=== PATIENT | female | born 1975 | race Caucasian/White ===

== ENCOUNTER 2016-10-22 08:26 | Emergency (ER) | payer MEDICAID ==
[2016-10-22 08:42] VITALS: BP 113/52
--- NOTE | 2016-10-22 09:45 | EDM.PDOC ---
[id number] Complaint: STEPPED ON A NAIL 10/19/16 Time Seen by Provider: 10/22/16 08:50 Source of Information: Reports: Patient, Family History Limitations: Reports: No Limitations - History of Present Illness INITIAL COMMENTS - FREE TEXT/NARRATIVE: 40-year-old female stepped on a nail 4 days ago, did go in to the clinic the following day and get a tetanus booster but this morning when she woke up she noticed her knee was sore, slightly swollen and was worried that she may have gotten infection from the nail puncture. She has had flareups of the knee in the past but not quite this painful. She has no fever, no redness, the nail puncture is healed but she has a lot of lateral joint line tenderness and wanted her knee looked at. Onset: Gradual (Over the past 12 hours) Location: Reports: Lower Extremity, Left Worsens with: Reports: Immobilization (After resting it stiffer, actually improves after she's been active), Other (Weightbearing is painful initially) Associated Symptoms: Denies: Fever/Chills - Related Data Allergies Allergy/AdvReac Type Severity Reaction Status Date / Time No Known Allergies Allergy Verified 10/22/16 08:42 Home Meds: Home Meds FLUoxetine [PROzac] 40 mg PO DAILY 10/06/14 [History] Past Medical History - Past Surgical History Female Surgical History: Reports: D&C, Tubal Ligation Other Musculoskeletal Surgeries/Procedures:: Bunionectomy Social & Family History - Tobacco Use Smoking Status *Q: Never Smoker Second Hand Smoke Exposure: No - Recreational Drug Use Recreational Drug Use: No Review of Systems - Review of Systems Review Of Systems: See Below Constitutional: Denies: Fever Eyes: Reports: No Symptoms Respiratory: Reports: No Symptoms Genitourinary: Reports: No Symptoms Skin: Reports: Other (Small healing puncture wound on the left foot) Psychiatric: Reports: No Symptoms ED EXAM, GENERAL - Physical Exam Exam: See Below Exam Limited By: No Limitations General Appearance: Alert, No Apparent Distress Respiratory/Chest: No Respiratory Distress Extremities: Other (Exam is otherwise limited to the lower extremities. She has a very small amount of swelling over the anterior aspect of the left knee with tenderness to palpation over the medial and lateral joint line. The ligaments however are stable with varus and valgus stress. She also has a small amount of posterior popliteal pain.) Course - Vital Signs Last Recorded V/S: Last Vital Signs Temp 96.1 F 10/22/16 08:49 Pulse 68 10/22/16 08:49 Resp 16 10/22/16 08:49 BP 113/52 L 10/22/16 08:49 Pulse Ox 95 10/22/16 08:49 - Orders/Labs/Meds Orders: Active Orders 24 hr Category Date Time Status Knee 3V Lt [CR] Stat Exams 10/22/16 09:12 Taken - Re-Assessments/Exams Free Text/Narrative Re-Assessment/Exam: 10/22/16 09:43 An knee x-ray is normal. A four-inch Pramod wrap was applied to the knee, she was asked to increase activity as tolerated and recheck with Dr. Chauhan later in the week if she is not improving satisfactorily. I reassured her that this is very unlikely related to her nail puncture. She will return immediately if she develops a fever, redness of the knee or warmth Departure - Departure Time of Disposition: 09:59 Disposition: Home, Self-Care 01 Condition: Good Clinical Impression: Strain of knee Qualifiers: Encounter type: initial encounter Laterality: left Qualified Code(s): S86.912A - Strain of unspecified muscle(s) and tendon(s) at lower leg level, left leg, initial encounter - Discharge Information Instructions: Knee Sprain, [id number] Referrals: Jessica Ritchie PA [Primary Care Provider] - Forms: ED Department Discharge Care Plan Goals: Wrap knee for support and increase activity as tolerated. Recheck if fever develops, increased redness or pain of the knee. If not improving satisfactorily recheck with Victor Manuel Chauhan in 4-5 days, he does have clinic on . If improving just increase activity as tolerated. - My Orders Last 24 Hours: My Active Orders 10/22/16 09:12 Knee 3V Lt [CR] Stat - Assessment/Plan Last 24 Hours: My Active Orders 10/22/16 09:12 Knee 3V Lt [CR] Stat
--- NOTE | 2016-10-23 09:44 | CR ---
No evidence for fracture.
== END 2016-10-22 10:00 | disposition home or self-care (01) ==
LOC: JP.ED 08:26
DX: S86.912A Strain of unspecified muscle(s) and tendon(s) at lower leg level, left leg, initial encounter (principal); W45.0XXA Nail entering through skin, initial encounter
CPT/HCPCS: 73562-26-LT; 73562-LT; 99284

== ENCOUNTER 2017-01-18 17:16 | Emergency (ER) | payer MEDICAID ==
[2017-01-18 17:30] VITALS: BP 105/67
--- NOTE | 2017-01-18 18:42 | EDM.PDOC ---
ED HPI GENERAL MEDICAL PROBLEM - General Chief Complaint: Lower Extremity Injury/Pain Stated Complaint: WANTS HER KNEE TAPPED Time Seen by Provider: 01/18/17 18:19 Source of Information: Reports: Patient History Limitations: Reports: No Limitations - History of Present Illness INITIAL COMMENTS - FREE TEXT/NARRATIVE: Knee swelling for the past several days. No injury. Was seen in the clinic and referred to the ER for aspiration. No hx of prior knee issues. Has medial jt line pain. No hx of gout. 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 DIRECTOR: Reports: Other (see below) (Knee sleeve.) knee; left Pain Score (Numeric/FACES): 6 - Related Data Allergies Allergy/AdvReac Type Severity Reaction Status Date / Time No Known Allergies Allergy Verified 01/18/17 17:41 Home Meds: Home Meds FLUoxetine [PROzac] 40 mg PO DAILY 10/06/14 [History] Naproxen 2 tab PO BID PRN 12/14/16 [History] Past Medical History Musculoskeletal History: Reports: Other (See Below) Other Musculoskeletal History: left shoulder pain Psychiatric History: Reports: Depression - Past Surgical History Female Surgical History: Reports: D&C, Tubal Ligation Other Musculoskeletal Surgeries/Procedures:: Bunionectomy Social & Family History - Tobacco Use Smoking Status *Q: Never Smoker Second Hand Smoke Exposure: No - Recreational Drug Use Recreational Drug Use: No Review of Systems - Review of Systems Review Of Systems: See Below Constitutional: Reports: No Symptoms Musculoskeletal: Reports: Joint Swelling (L knee) Skin: Reports: No Symptoms Neurological: Reports: No Symptoms ED EXAM, GENERAL - Physical Exam Exam: See Below Exam Limited By: No Limitations General Appearance: Alert, WD/WN, No Apparent Distress Extremities: Joint Swelling (L knee slightly warm with a large effusion.), Increased Warmth (slight increase only). No: Redness Neurological: Alert, Oriented, CN II-XII Intact, Normal Cognition, Normal Reflexes, No Motor/Sensory Deficits Psychiatric: Normal Affect, Normal Mood Skin Exam: Warm, Dry, Intact, Normal Color, No Rash Lymphatic: No Adenopathy Course - Vital Signs Text/Narrative:: Aspirated 30 ml of cloudy, yellow fluid from the L knee. BONIFACIO and immobilizer applied. Discussed with orthopedics, Dr. Chauhan @ Last Recorded V/S: Last Vital Signs Temp 36.4 C 01/18/17 19:56 Pulse 87 01/18/17 17:28 Resp 16 01/18/17 17:28 BP 105/67 01/18/17 17:28 Pulse Ox 99 01/18/17 17:28 - Orders/Labs/Meds Orders: Active Orders 24 hr Category Date Time Status CELL COUNT,BODY FLUID [BF] Stat Lab 01/18/17 18:58 Received CRYSTALS,FLUID [REF] Stat Lab 01/18/17 18:58 Received CULTURE BODY FLUID + SMEAR [RM] Stat Lab 01/18/17 18:58 Results LYME,BY PCR [REF] Routine Lab 01/18/17 20:12 Ordered ceFAZolin [Ancef] 2 gm Med 01/18/17 20:13 Ordered Premix Bag 1 bag IV ONETIME Medication Orders Cefazolin Sodium/Dextrose 2 gm (/ Premix) 50 mls @ 100 mls/hr IV ONETIME ONE Stop: 01/18/17 20:42 Labs: Laboratory Tests 01/18/17 Range/Units 19:57 WBC 11.9 H (4.5-11.0) K/uL RBC 3.83 (3.30-5.50) M/uL Hgb 11.1 L (12.0-15.0) g/dL Hct 34.0 L (36.0-48.0) % MCV 89 (80-98) fL MCH 29 (27-31) pg MCHC 33 (32-36) % Plt Count 336 (150-400) K/uL Meds: Medications Generic Name Dose Route Start Last Admin Trade Name Freq PRN Reason Stop Dose Admin Cefazolin Sodium/Dextrose 2 gm 50 mls @ 100 mls/hr 01/18/17 20:13 / Premix IV 01/18/17 20:42 ONETIME ONE Discontinued Medications Generic Name Dose Route Start Last Admin Trade Name Freq PRN Reason Stop Dose Admin Lidocaine HCl 5 ml 01/18/17 18:16 01/18/17 18:55 Xylocaine-Mpf 1% INJECT 01/18/17 18:17 5 ml ONETIME ONE Administration Departure - Departure Time of Disposition: 20:50 Disposition: Home, Self-Care 01 Condition: Fair Clinical Impression: Knee effusion, left - Discharge Information Referrals: Jessica Ritchie PA [Primary Care Provider] - Forms: ED Department Discharge - My Orders Last 24 Hours: My Active Orders 01/18/17 18:58 CELL COUNT,BODY FLUID [BF] Stat CRYSTALS,FLUID [REF] Stat CULTURE BODY FLUID + SMEAR [RM] Stat 01/18/17 20:12 LYME,BY PCR [REF] Routine 01/18/17 20:13 ceFAZolin [Ancef] 2 gm Premix Bag 1 bag IV ONETIME - Assessment/Plan Last 24 Hours: My Active Orders 01/18/17 18:58 CELL COUNT,BODY FLUID [BF] Stat CRYSTALS,FLUID [REF] Stat CULTURE BODY FLUID + SMEAR [RM] Stat 01/18/17 20:12 LYME,BY PCR [REF] Routine 01/18/17 20:13 ceFAZolin [Ancef] 2 gm Premix Bag 1 bag IV ONETIME
[2017-01-18] MEDS ORDERED: ceFAZolin 2 GM in Premix Bag 1 BAG IV ONE (20:13)
== END 2017-01-18 21:20 | disposition home or self-care (01) ==
LOC: JP.ED 17:16
DX: M25.462 Effusion, left knee (principal); F32.9 Major depressive disorder, single episode, unspecified
CPT/HCPCS: 20610; 36415; 85027; 87070; 87205; 87476; 89050; 89060; 96374; 99284; J0690

== ENCOUNTER 2020-05-15 10:29 | Emergency (ER) | payer MEDICAID ==
--- NOTE | 2020-05-15 10:43 | EDM.PDOCBH ---
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 History from patient. she is a good historian. history also from male partner at bedside. Patient notes to me difficulty sleeping, thoughts of worthlessness, crying episodes, depression and "suicide attempt" yesterday when she took 8x0.5 mg tablets of her Ativan with hope that her "heart would stop". Patient notes that "if she had a gun she would use it." She "wants to " upon ER arrival. She reports lack of interest in activities, food, nutrition. Her male partner notes that he "made her eat today. Patient on arrival has a supportive male partner at the bedside was concerned about her wellbeing and her ongoing suicidal thoughts, plan and recent attempt. Patient denies any runny nose, sore throat, cough, change in taste or smell. Denies history of thyroid problems. Denies any alcohol or drug use or abuse at this time. She previously was working as "[employer]". There are recent reported social stressors in her life. She feels physically safe and denies being threatened or abused. she still has ativan at home. Patient denies any Tylenol ingestions or any other medication ingestions other than the Ativan yesterday. She is on her menses at this time and denies . no covid symptoms. - Related Data Allergies Allergy/AdvReac Type Severity Reaction Status Date / Time No Known Allergies Allergy Verified 05/15/20 10:42 Home Meds: Home Meds FLUoxetine [PROzac] 40 mg PO DAILY 10/06/14 [History] Naproxen 2 tab PO BID PRN 12/14/16 [History] ARIPiprazole [Abilify] 5 mg PO DAILY 05/15/20 [History] LORazepam [Ativan] 0.5 mg PO Q6H PRN 05/15/20 [History] Past Medical History Musculoskeletal History: Reports: Other (See Below) Other Musculoskeletal History: left shoulder pain. left knee cyr Psychiatric History: Reports: Depression - Past Surgical History Female Surgical History: Reports: D&C, Tubal Ligation Other Musculoskeletal Surgeries/Procedures:: Bunionectomy Social & Family History - Caffeine Use Caffeine Use: Reports: Coffee, Soda ED ROS GENERAL - Review of Systems Review Of Systems: See Below HEENT: Reports: No Symptoms Respiratory: Reports: No Symptoms Cardiovascular: Reports: No Symptoms Endocrine: Reports: No Symptoms GI/Abdominal: Reports: No Symptoms : Reports: Other (on menses now. ) Musculoskeletal: Reports: No Symptoms Skin: Reports: No Symptoms Neurological: Reports: No Symptoms Psychiatric: Reports: Anxiety, Suicidal Ideation, Other (suicide plan and attempt 1 day ago. ) Hematologic/Lymphatic: Reports: No Symptoms Immunologic: Reports: No Symptoms ED EXAM, BEHAVIORAL HEALTH - Physical Exam Exam: See Below Exam Limited By: No Limitations General Appearance: Alert, Anxious Eye Exam: Bilateral Eye: EOMI Ears: Normal External Exam. No: Hearing Loss Nose: Normal Inspection Throat/Mouth: Normal Lips, Normal Gums, No Airway Compromise Head: Atraumatic Neck: Normal Inspection, Full Range of Motion Respiratory/Chest: No Respiratory Distress, Lungs Clear, Normal Breath Sounds Cardiovascular: Normal Peripheral Pulses, Regular Rate, Rhythm, No Edema, No Murmur GI/Abdominal: Normal Bowel Sounds, Soft, Non-Tender, No Distention Back Exam: Normal Inspection, Full Range of Motion Extremities: Normal Inspection, Normal Range of Motion, Non-Tender, Normal Capillary Refill Neurological: Alert, Normal Cognition, Normal Gait, No Motor/Sensory Deficits, Oriented x 3. No: Ataxia, Slow Response to Commands Psychiatric: Flat Affect, Tearful, Poor Eye Contact, Suicidal Thoughts. No: Flight of Ideas, Homicidal Thoughts, Auditory Hallucinations, Visual Hallucinations, Pressured Speech, Paranoid Thoughts, Threatening Behavior Skin Exam: Warm, Dry, Intact, Normal color, No rash COURSE, BEHAVIORAL HEALTH COMP - Course Vital Signs: Last Vital Signs Temp 36.1 C 05/15/20 10:51 Pulse 96 05/15/20 10:51 Resp 17 05/15/20 10:51 BP 109/69 05/15/20 10:51 Pulse Ox 96 05/15/20 10:51 Orders, Labs, Meds: Laboratory Tests 05/15/20 05/15/20 05/15/20 Range/Units 11:26 11:26 11:26 WBC 9.6 (4.5-11.0) K/uL RBC 4.45 (3.30-5.50) M/uL Hgb 13.3 D (12.0-15.0) g/dL Hct 41.1 (36.0-48.0) % MCV 92 (80-98) fL MCH 30 (27-31) pg MCHC 32 (32-36) % Plt Count 343 (150-400) K/uL Neut % (Auto) 70 H (36-66) % Lymph % (Auto) 21 L (24-44) % [place] % (Auto) 9 H (2-6) % Eos % (Auto) 1 L (2-4) % Baso % (Auto) 0 (0-1) % Sodium 141 (140-148) mmol/L Potassium 3.9 (3.6-5.2) mmol/L Chloride 106 (100-108) mmol/L Carbon Dioxide 27 (21-32) mmol/L Anion Gap 7.6 (5.0-14.0) mmol/L BUN 20 H D (7-18) mg/dL Creatinine 0.9 (0.6-1.0) mg/dL Est Cr Clr Drug Dosing 70.28 mL/min Estimated GFR (MDRD) > 60 (>60) Glucose 113 H (74-106) mg/dL Calcium 9.2 (8.5-10.1) mg/dL Total Bilirubin 0.4 (0.2-1.0) mg/dL AST 13 L D (15-37) U/L ALT 16 (12-78) U/L Alkaline Phosphatase 60 (46-116) U/L Total Protein 7.0 (6.4-8.2) g/dL Albumin 3.8 (3.4-5.0) g/dL Globulin 3.2 (2.3-3.5) g/dL Albumin/Globulin Ratio 1.2 (1.2-2.2) TSH, Ultra Sensitive 0.658 (0.358-3.740) uIU/mL HCG, Qual Negative Salicylates (2.0-20.0) mg/dL Urine Opiates Screen (NEGATIVE) Ur Oxycodone Screen (NEGATIVE) Urine Methadone Screen (NEGATIVE) Ur Propoxyphene Screen (NEGATIVE) Acetaminophen (10.0-30.0) ug/mL Ur Barbiturates Screen (NEGATIVE) Ur Tricyclics Screen (NEGATIVE) Ur Phencyclidine Scrn (NEGATIVE) Ur Amphetamine Screen (NEGATIVE) U Methamphetamines Scrn (NEGATIVE) Urine MDMA Screen (NEGATIVE) U Benzodiazepines Scrn (NEGATIVE) U Cocaine Metab Screen (NEGATIVE) U Marijuana (THC) Screen (NEGATIVE) Ethyl Alcohol mg/dL SARS CoV-2 RNA Rapid JAX 05/15/20 05/15/20 05/15/20 Range/Units 11:26 11:26 11:26 WBC (4.5-11.0) K/uL RBC (3.30-5.50) M/uL Hgb (12.0-15.0) g/dL Hct (36.0-48.0) % MCV (80-98) fL MCH (27-31) pg MCHC (32-36) % Plt Count (150-400) K/uL Neut % (Auto) (36-66) % Lymph % (Auto) (24-44) % [place] % (Auto) (2-6) % Eos % (Auto) (2-4) % Baso % (Auto) (0-1) % Sodium (140-148) mmol/L Potassium (3.6-5.2) mmol/L Chloride (100-108) mmol/L Carbon Dioxide (21-32) mmol/L Anion Gap (5.0-14.0) mmol/L BUN (7-18) mg/dL Creatinine (0.6-1.0) mg/dL Est Cr Clr Drug Dosing mL/min Estimated GFR (MDRD) (>60) Glucose (74-106) mg/dL Calcium (8.5-10.1) mg/dL Total Bilirubin (0.2-1.0) mg/dL AST (15-37) U/L ALT (12-78) U/L Alkaline Phosphatase (46-116) U/L Total Protein (6.4-8.2) g/dL Albumin (3.4-5.0) g/dL Globulin (2.3-3.5) g/dL Albumin/Globulin Ratio (1.2-2.2) TSH, Ultra Sensitive (0.358-3.740) uIU/mL HCG, Qual Salicylates 1.4 L (2.0-20.0) mg/dL Urine Opiates Screen (NEGATIVE) Ur Oxycodone Screen (NEGATIVE) Urine Methadone Screen (NEGATIVE) Ur Propoxyphene Screen (NEGATIVE) Acetaminophen 0.0 L (10.0-30.0) ug/mL Ur Barbiturates Screen (NEGATIVE) Ur Tricyclics Screen (NEGATIVE) Ur Phencyclidine Scrn (NEGATIVE) Ur Amphetamine Screen (NEGATIVE) U Methamphetamines Scrn (NEGATIVE) Urine MDMA Screen (NEGATIVE) U Benzodiazepines Scrn (NEGATIVE) U Cocaine Metab Screen (NEGATIVE) U Marijuana (THC) Screen (NEGATIVE) Ethyl Alcohol < 3 mg/dL SARS CoV-2 RNA Rapid JAX 05/15/20 05/15/20 Range/Units 11:29 11:34 WBC (4.5-11.0) K/uL RBC (3.30-5.50) M/uL Hgb (12.0-15.0) g/dL Hct (36.0-48.0) % MCV (80-98) fL MCH (27-31) pg MCHC (32-36) % Plt Count (150-400) K/uL Neut % (Auto) (36-66) % Lymph % (Auto) (24-44) % [place] % (Auto) (2-6) % Eos % (Auto) (2-4) % Baso % (Auto) (0-1) % Sodium (140-148) mmol/L Potassium (3.6-5.2) mmol/L Chloride (100-108) mmol/L Carbon Dioxide (21-32) mmol/L Anion Gap (5.0-14.0) mmol/L BUN (7-18) mg/dL Creatinine (0.6-1.0) mg/dL Est Cr Clr Drug Dosing mL/min Estimated GFR (MDRD) (>60) Glucose (74-106) mg/dL Calcium (8.5-10.1) mg/dL Total Bilirubin (0.2-1.0) mg/dL AST (15-37) U/L ALT (12-78) U/L Alkaline Phosphatase (46-116) U/L Total Protein (6.4-8.2) g/dL Albumin (3.4-5.0) g/dL Globulin (2.3-3.5) g/dL Albumin/Globulin Ratio (1.2-2.2) TSH, Ultra Sensitive (0.358-3.740) uIU/mL HCG, Qual Salicylates (2.0-20.0) mg/dL Urine Opiates Screen Negative (NEGATIVE) Ur Oxycodone Screen Negative (NEGATIVE) Urine Methadone Screen Negative (NEGATIVE) Ur Propoxyphene Screen Negative (NEGATIVE) Acetaminophen (10.0-30.0) ug/mL Ur Barbiturates Screen Negative (NEGATIVE) Ur Tricyclics Screen Negative (NEGATIVE) Ur Phencyclidine Scrn Negative (NEGATIVE) Ur Amphetamine Screen Negative (NEGATIVE) U Methamphetamines Scrn Negative (NEGATIVE) Urine MDMA Screen Negative (NEGATIVE) U Benzodiazepines Scrn Presumptive positive H (NEGATIVE) U Cocaine Metab Screen Negative (NEGATIVE) U Marijuana (THC) Screen Negative (NEGATIVE) Ethyl Alcohol mg/dL SARS CoV-2 RNA Rapid JAX Negative Medications Discontinued Medications Generic Name Dose Route Start Last Admin Trade Name Freq PRN Reason Stop Dose Admin Lorazepam 1 mg 05/15/20 11:18 05/15/20 11:22 Ativan PO 05/15/20 11:19 1 mg NOW STA Administration Re-Assessment/Re-Exam: Patient underwent history and physical examination and reassessments. Patient is awake, alert, coherent and has not had any untoward effects from her intentional suicidal benzodiazepine ingestion yesterday. Patient denies any coingestions. She is clinically sober and lucid. Based on patient's goal direction "to ", recent attempt and ongoing suicidal ideation with plan , I do feel she would benefit from inpatient psychiatric admission. I discussed this with the patient who voiced understanding. I recommend a 72-hour hold. Patient is currently being watched with suicide precautions and safety measures in place. Her personal belongings have been categorized and will be placed in safety location. Baseline screening laboratory studies are being obtained. Patient has no Covid symptoms. A rapid Covid test is sent. Patient will require inpatient psychiatric admission not available this institution. Closest behavioral health facility with capacity will be contacted. 1215: patient on 72 hour hold. she is now resting on cart, no longer anxious. await final screening labs. will need placement for behavioral health treatment. 1224: Screen laboratories have been reviewed. Patient is medically stable for transfer for inpatient mental health needs. Patient is Covid negative. Remaining laboratory studies are reassuring. No evidence of thyroid abnormalities, metabolic derangements, anemia or any clinical signs of acute drug ingestion, withdrawal or intoxication. Patient is appropriate for inpatient mental health on a 72-hour hold. She will be offered comfort items and appropriate ED care until a bed can be located. Patient is medically stable for transfer or admission for mental health needs to [facility]. patient is cooperative here and understands need for inpatient treatment. she has ongoing intent to harm herself. she has been very polite with me. 1300: covid test negative. awaiting update on available behavioral health beds available for transfer on 72 hour hold. Medically stable for transfer. Boarding in ED until transfer can be arranged to closest facility with capacity. 1435: patient updated with lab results, covid results. she is resting comfortable and voiced understanding of plan to transfer to closest facility with capacity for ongoing mental health treatment. She is polite and understands. 1504: [facility] accepts via [facility] transport. on 72 hour hold EMTALA completed and transfer forms. patient cooperative. stable for transfer. Departure - Departure Time of Disposition: 15:33 ([place], [place], [facility] with [facility]. EMTRENE completed. Dr. Sam accepted. ) Disposition: DC/Tfer to Psych Hosp/Unit 65 Condition: Fair Clinical Impression: Planning to commit suicide Suicide attempt by drug ingestion Qualifiers: Encounter type: initial encounter Qualified Code(s): T50.902A - Poisoning by unspecified drugs, medicaments and biological substances, intentional self-harm, initial encounter - Discharge Information *PRESCRIPTION DRUG MONITORING PROGRAM REVIEWED*: No *COPY OF PRESCRIPTION DRUG MONITORING REPORT IN PATIENT JB: No Referrals: PCP,None [Primary Care Provider] - Forms: Interfacility Transfer EMTALA Sepsis Event Note (ED) - Focused Exam Vital Signs: Vital Signs Temp Pulse Resp BP Pulse Ox 05/15/20 10:51 36.1 C 96 17 109/69 96 05/15/20 10:47 36.1 C 96 17 109/69 96
[2020-05-15] MEDS ORDERED: LORazepam 1 MG Tab PO STA (11:18)
[2020-05-15] MEDS ORDERED: LORazepam 1 MG Tab PO ONE (16:33)
[2020-05-15 17:15] VITALS: BP 106/67; PULSE 75
== END 2020-05-15 17:23 ==
LOC: JP.ED 10:29
DX: T42.4X2A Poisoning by benzodiazepines, intentional self-harm, initial encounter (principal); Z20.822 Contact with and (suspected) exposure to COVID-19; Z79.899 Other long term (current) drug therapy
CPT/HCPCS: 36415; 80053; 80143; 80179; 80305; 80307; 84443; 84703; 85025; 87635; 99285; A9270; U0002

== ENCOUNTER 2020-05-31 13:01 | Inpatient (IN) | payer MEDICAID ==
--- NOTE | 2020-05-31 13:23 | EDM.PDOC ---
ED HPI GENERAL MEDICAL PROBLEM - General Chief Complaint: Behavioral/Psych Stated Complaint: POSSIBLE OVERDOSE VIA [facility] Time Seen by Provider: 05/31/20 13:21 Source of Information: Reports: Patient History Limitations: Reports: No Limitations - History of Present Illness INITIAL COMMENTS - FREE TEXT/NARRATIVE: Pt took 16-18 pills. She has given 2 storyies. To the ambulance she said it was ativan but now she does not seem to be sure. She is very lethargic. She states her meds are locked up. It sounds like there is conflict in the household. Pt does have a long history of addiction Onset: Gradual, Other (pt took them last nite. ) Duration: Hour(s): Location: Reports: Generalized Associated Symptoms: Reports: No Other Symptoms - Related Data Allergies Allergy/AdvReac Type Severity Reaction Status Date / Time No Known Allergies Allergy Verified 05/31/20 13:11 Home Meds: Home Meds FLUoxetine [PROzac] 40 mg PO DAILY 10/06/14 [History] ARIPiprazole [Abilify] 5 mg PO DAILY 05/15/20 [History] LORazepam [Ativan] 0.5 mg PO Q6H PRN 05/15/20 [History] Lisdexamfetamine [Vyvanse] 30 mg PO DAILY 05/31/20 [History] hydrOXYzine pamoate [Hydroxyzine Pamoate] 75 mg PO TID 05/31/20 [History] traZODone HCl [Trazodone HCl] 100 mg PO BEDTIME 05/31/20 [History] Past Medical History Musculoskeletal History: Reports: Other (See Below) Other Musculoskeletal History: left shoulder pain. left knee cyr Psychiatric History: Reports: Depression - Past Surgical History Head Surgeries/Procedures: Reports: None Female Surgical History: Reports: D&C, Tubal Ligation Musculoskeletal Surgical History: Reports: Other (See Below) Other Musculoskeletal Surgeries/Procedures:: Bunionectomy Social & Family History - Caffeine Use Caffeine Use: Reports: Coffee, Soda ED ROS GENERAL - Review of Systems Review Of Systems: See Below Constitutional: Reports: Other (lethargic) HEENT: Reports: No Symptoms Respiratory: Reports: No Symptoms, Other (pt is in control of hwer secretions) Cardiovascular: Reports: No Symptoms Endocrine: Reports: No Symptoms GI/Abdominal: Reports: No Symptoms : Reports: No Symptoms Musculoskeletal: Reports: No Symptoms Skin: Reports: No Symptoms - Physical Exam Exam: See Below Text/Narrative:: pt arrived with a history of taking about 18 lorezepam last nite. She states these are normally locked up. Exam Limited By: No Limitations General Appearance: Alert, Obtunded, Other (pupils equal and reactive. ) Ears: Normal TMs Nose: Normal Inspection Throat/Mouth: Normal Inspection Head Exam: Atraumatic Neck: Normal Inspection Respiratory/Chest: No Respiratory Distress Cardiovascular: Regular Rate, Rhythm GI/Abdominal: Soft, Non-Tender (Female) Exam: Deferred Rectal (Female) Exam: Deferred Neuro Exam (Abbreviated): Alert, Other ( very lethargic) Back Exam: Normal Inspection Extremities: Normal Inspection Psychiatric: Other (pt is very lethargic. She admits to being much more depressed that is why she took the meds. ) Course - Vital Signs Last Recorded V/S: Last Vital Signs Temp 36.8 C 05/31/20 13:11 Pulse 82 05/31/20 13:11 Resp 20 05/31/20 13:11 BP 108/57 L 05/31/20 13:11 Pulse Ox 100 05/31/20 13:11 - Orders/Labs/Meds Orders: Active Orders 24 hr Category Date Time Status [place] Catheter Insertion [Insert Urinary Catheter] [OM. Care 05/31/20 13:30 Ordered PC] Q24H Urinary Catheter Assessment [RC] ASDIRECTED Care 05/31/20 13:25 Active UA W/MICROSCOPIC [URIN] Urgent Lab 05/31/20 14:36 Ordered Sodium Chloride 0.9% [Normal Saline] 1,000 ml Med 05/31/20 13:30 Active IV ASDIRECTED Sodium Chloride 0.9% [Normal Saline] 1,000 ml Med 05/31/20 13:30 Active IV ASDIRECTED Medication Orders Sodium Chloride (Normal Saline) 1,000 mls @ 999 mls/hr IV ASDIRECTED [facility] Last Admin: 05/31/20 13:23 Dose: 999 mls/hr Documented by: PATRICIA Sodium Chloride (Normal Saline) 1,000 mls @ 999 mls/hr IV ASDIRECTED [facility] Labs: Laboratory Tests 05/31/20 05/31/20 05/31/20 Range/Units 13:19 13:30 13:30 WBC 8.5 (4.5-11.0) K/uL RBC 4.13 (3.30-5.50) M/uL Hgb 12.3 (12.0-15.0) g/dL Hct 38.1 (36.0-48.0) % MCV 92 (80-98) fL MCH 30 (27-31) pg MCHC 32 (32-36) % Plt Count 326 (150-400) K/uL Neut % (Auto) 57 (36-66) % Lymph % (Auto) 32 (24-44) % [place] % (Auto) 10 H (2-6) % Eos % (Auto) 1 L (2-4) % Baso % (Auto) 0 (0-1) % Sodium 142 (140-148) mmol/L Potassium 4.1 (3.6-5.2) mmol/L Chloride 107 (100-108) mmol/L Carbon Dioxide 25 (21-32) mmol/L Anion Gap 10.0 (5.0-14.0) mmol/L BUN 18 (7-18) mg/dL Creatinine 0.9 (0.6-1.0) mg/dL Est Cr Clr Drug Dosing 67.11 mL/min Estimated GFR (MDRD) > 60 (>60) Glucose 87 (74-106) mg/dL Calcium 8.8 (8.5-10.1) mg/dL Total Bilirubin 0.5 (0.2-1.0) mg/dL AST 12 L (15-37) U/L ALT 17 (12-78) U/L Alkaline Phosphatase 53 (46-116) U/L Total Protein 6.5 (6.4-8.2) g/dL Albumin 3.7 (3.4-5.0) g/dL Globulin 2.8 (2.3-3.5) g/dL Albumin/Globulin Ratio 1.3 (1.2-2.2) Urine Opiates Screen (NEGATIVE) Ur Oxycodone Screen (NEGATIVE) Urine Methadone Screen (NEGATIVE) Ur Propoxyphene Screen (NEGATIVE) Ur Barbiturates Screen (NEGATIVE) Ur Tricyclics Screen (NEGATIVE) Ur Phencyclidine Scrn (NEGATIVE) Ur Amphetamine Screen (NEGATIVE) U Methamphetamines Scrn (NEGATIVE) Urine MDMA Screen (NEGATIVE) U Benzodiazepines Scrn (NEGATIVE) U Cocaine Metab Screen (NEGATIVE) U Marijuana (THC) Screen (NEGATIVE) Ethyl Alcohol < 3 mg/dL 05/31/20 Range/Units 14:36 WBC (4.5-11.0) K/uL RBC (3.30-5.50) M/uL Hgb (12.0-15.0) g/dL Hct (36.0-48.0) % MCV (80-98) fL MCH (27-31) pg MCHC (32-36) % Plt Count (150-400) K/uL Neut % (Auto) (36-66) % Lymph % (Auto) (24-44) % [place] % (Auto) (2-6) % Eos % (Auto) (2-4) % Baso % (Auto) (0-1) % Sodium (140-148) mmol/L Potassium (3.6-5.2) mmol/L Chloride (100-108) mmol/L Carbon Dioxide (21-32) mmol/L Anion Gap (5.0-14.0) mmol/L BUN (7-18) mg/dL Creatinine (0.6-1.0) mg/dL Est Cr Clr Drug Dosing mL/min Estimated GFR (MDRD) (>60) Glucose (74-106) mg/dL Calcium (8.5-10.1) mg/dL Total Bilirubin (0.2-1.0) mg/dL AST (15-37) U/L ALT (12-78) U/L Alkaline Phosphatase (46-116) U/L Total Protein (6.4-8.2) g/dL Albumin (3.4-5.0) g/dL Globulin (2.3-3.5) g/dL Albumin/Globulin Ratio (1.2-2.2) Urine Opiates Screen Negative (NEGATIVE) Ur Oxycodone Screen Negative (NEGATIVE) Urine Methadone Screen Negative (NEGATIVE) Ur Propoxyphene Screen Negative (NEGATIVE) Ur Barbiturates Screen Negative (NEGATIVE) Ur Tricyclics Screen Negative (NEGATIVE) Ur Phencyclidine Scrn Negative (NEGATIVE) Ur Amphetamine Screen Negative (NEGATIVE) U Methamphetamines Scrn Negative (NEGATIVE) Urine MDMA Screen Negative (NEGATIVE) U Benzodiazepines Scrn Presumptive positive H (NEGATIVE) U Cocaine Metab Screen Negative (NEGATIVE) U Marijuana (THC) Screen Negative (NEGATIVE) Ethyl Alcohol mg/dL Meds: Medications Generic Name Dose Route Start Last Admin Trade Name Arti PRN Reason Stop Dose Admin Sodium Chloride 1,000 mls @ 999 mls/hr 05/31/20 13:30 05/31/20 13:23 Normal Saline IV 999 mls/hr ASDIRECTED ALEX Administration Sodium Chloride 1,000 mls @ 999 mls/hr 05/31/20 13:30 Normal Saline IV ASDIRECTED ALEX - Re-Assessments/Exams Free Text/Narrative Re-Assessment/Exam: 05/31/20 14:54 drug screen is positive for benzodiapines. Departure - Departure Time of Disposition: 14:54 Disposition: Admitted As Inpatient 64 Condition: Fair Clinical Impression: Overdose - Discharge Information Referrals: PCP,None [Primary Care Provider] - Forms: ED Department Discharge Care Plan Goals: admit to Dr Fernandez Sepsis Event Note (ED) - Evaluation Sepsis Screening Result: No Definite Risk - Focused Exam Vital Signs: Vital Signs Temp Pulse Resp BP Pulse Ox 05/31/20 13:11 36.8 C 82 20 108/57 L 100 - My Orders Last 24 Hours: My Active Orders 05/31/20 13:25 Urinary Catheter Assessment [RC] ASDIRECTED 05/31/20 13:30 [place] Catheter Insertion [Insert Urinary Catheter] [OM.PC] Q24H Sodium Chloride 0.9% [Normal Saline] 1,000 ml IV ASDIRECTED Sodium Chloride 0.9% [Normal Saline] 1,000 ml IV ASDIRECTED 05/31/20 14:36 UA W/MICROSCOPIC [URIN] Urgent - Assessment/Plan Last 24 Hours: My Active Orders 05/31/20 13:25 Urinary Catheter Assessment [RC] ASDIRECTED 05/31/20 13:30 [place] Catheter Insertion [Insert Urinary Catheter] [OM.PC] Q24H Sodium Chloride 0.9% [Normal Saline] 1,000 ml IV ASDIRECTED Sodium Chloride 0.9% [Normal Saline] 1,000 ml IV ASDIRECTED 05/31/20 14:36 UA W/MICROSCOPIC [URIN] Urgent
[2020-05-31] MEDS ORDERED: Sodium Chloride 0.9% 1,000 ML IV SCH ×2 (13:30)
--- NOTE | 2020-05-31 15:02 | PCM.HP.2 ---
H&P History of Present Illness - General Date of Service: 05/31/20 Admit Problem/Dx: Admission Diagnosis/Problem Admission Diagnosis/Problem Drug overdose - suicide Source of Information: Patient, Provider, RN Notes Reviewed History Limitations: Reports: Altered Mental Status (Lethargic secondary to drug overdose) - History of Present Illness Initial Comments - Free Text/Narative: Ms. Pastor is a 44-year-old woman who was admitted through the emergency department with lethargy and decreased level of consciousness secondary to overdose of lorazepam. She is lethargic but is arousable and able to provide limited amount of information. She reports that she took an overdose of lorazepam last night in a suicide attempt. She thinks she took approximately eighteen 1 mg tablets at about 7 PM last night. She was more lethargic on initial assessment in the emergency department but has improved somewhat the longer that she has been here. She has a known and longstanding history of depression as well as alcohol abuse. - Related Data Allergies/Adverse Reactions: Allergies Allergy/AdvReac Type Severity Reaction Status Date / Time No Known Allergies Allergy Verified 05/31/20 13:11 Home Medications: Home Meds FLUoxetine [PROzac] 40 mg PO DAILY 10/06/14 [History] ARIPiprazole [Abilify] 5 mg PO DAILY 05/15/20 [History] LORazepam [Ativan] 0.5 mg PO Q6H PRN 05/15/20 [History] Lisdexamfetamine [Vyvanse] 30 mg PO DAILY 05/31/20 [History] hydrOXYzine pamoate [Hydroxyzine Pamoate] 75 mg PO TID 05/31/20 [History] traZODone HCl [Trazodone HCl] 100 mg PO BEDTIME 05/31/20 [History] Past Medical History Musculoskeletal History: Reports: Other (See Below) Other Musculoskeletal History: left shoulder pain. left knee cyr Psychiatric History: Reports: Depression - Past Surgical History Head Surgeries/Procedures: Reports: None Female Surgical History: Reports: D&C, Tubal Ligation Musculoskeletal Surgical History: Reports: Other (See Below) Other Musculoskeletal Surgeries/Procedures:: Bunionectomy Social & Family History - Tobacco Use Tobacco Use Status *Q: Current Every Day Tobacco User Years of Tobacco use: 20 Packs/Tins Daily: 0.5 - Caffeine Use Caffeine Use: Reports: Coffee, Soda - Recreational Drug Use Recreational Drug Use: No H&P Review of Systems - Review of Systems: Review Of Systems: See Below General: Reports: ROS unobtainable (Complete review of systems not obtainable because of lethargy and decreased level of consciousness) Exam - Exam Exam: See Below - Vital Signs Vital Signs: Last Vital Signs Temp 98.3 F 05/31/20 13:11 Pulse 82 05/31/20 13:11 Resp 20 05/31/20 13:11 BP 108/57 L 05/31/20 13:11 Pulse Ox 100 05/31/20 13:11 Weight: 120 lb - Exam Quality Assessment: DVT Prophylaxis General: Sedated, Lethargic HEENT: Conjunctiva Clear, Hearing Intact, Mucosa Moist & [place], Normal Nasal Septum, Posterior Pharynx Clear, Pupils Equal Neck: Supple, Trachea Midline, +2 Carotid Pulse wo Bruit Lungs: Clear to Auscultation, Normal Respiratory Effort Cardiovascular: Regular Rate, Regular Rhythm, Normal S1, Normal S2. No: Systolic Murmur, Diastolic Murmur GI/Abdominal Exam: Soft, Non-Tender, No Organomegaly, No Distention Skin: Warm, Dry, Intact Psychiatric: Depressed, Suicidal Ideation - Patient Data Lab Results Last 24 hrs: Laboratory Results - last 24 hr 05/31/20 05/31/20 05/31/20 Range/Units 13:19 13:30 13:30 WBC 8.5 (4.5-11.0) K/uL RBC 4.13 (3.30-5.50) M/uL Hgb 12.3 (12.0-15.0) g/dL Hct 38.1 (36.0-48.0) % MCV 92 (80-98) fL MCH 30 (27-31) pg MCHC 32 (32-36) % Plt Count 326 (150-400) K/uL Neut % (Auto) 57 (36-66) % Lymph % (Auto) 32 (24-44) % [place] % (Auto) 10 H (2-6) % Eos % (Auto) 1 L (2-4) % Baso % (Auto) 0 (0-1) % Sodium 142 (140-148) mmol/L Potassium 4.1 (3.6-5.2) mmol/L Chloride 107 (100-108) mmol/L Carbon Dioxide 25 (21-32) mmol/L Anion Gap 10.0 (5.0-14.0) mmol/L BUN 18 (7-18) mg/dL Creatinine 0.9 (0.6-1.0) mg/dL Est Cr Clr Drug Dosing 67.11 mL/min Estimated GFR (MDRD) > 60 (>60) Glucose 87 (74-106) mg/dL Calcium 8.8 (8.5-10.1) mg/dL Total Bilirubin 0.5 (0.2-1.0) mg/dL AST 12 L (15-37) U/L ALT 17 (12-78) U/L Alkaline Phosphatase 53 (46-116) U/L Total Protein 6.5 (6.4-8.2) g/dL Albumin 3.7 (3.4-5.0) g/dL Globulin 2.8 (2.3-3.5) g/dL Albumin/Globulin Ratio 1.3 (1.2-2.2) Urine Color (YELLOW) Urine Appearance (CLEAR) Urine pH (5.0-8.0) Ur Specific [place] (1.008-1.030) Urine Protein (NEGATIVE) mg/dL Urine Glucose (UA) (NEGATIVE) mg/dL Urine Ketones (NEGATIVE) mg/dL Urine Occult Blood (NEGATIVE) Urine Nitrite (NEGATIVE) Urine Bilirubin (NEGATIVE) Urine Urobilinogen (0.2-1.0) EU/dL Ur Leukocyte Esterase (NEGATIVE) Urine RBC (0-5) Urine WBC (0-5) Ur Epithelial Cells Amorphous Sediment Urine Bacteria Urine Mucus Urine Opiates Screen (NEGATIVE) Ur Oxycodone Screen (NEGATIVE) Urine Methadone Screen (NEGATIVE) Ur Propoxyphene Screen (NEGATIVE) Ur Barbiturates Screen (NEGATIVE) Ur Tricyclics Screen (NEGATIVE) Ur Phencyclidine Scrn (NEGATIVE) Ur Amphetamine Screen (NEGATIVE) U Methamphetamines Scrn (NEGATIVE) Urine MDMA Screen (NEGATIVE) U Benzodiazepines Scrn (NEGATIVE) U Cocaine Metab Screen (NEGATIVE) U Marijuana (THC) Screen (NEGATIVE) Ethyl Alcohol < 3 mg/dL 05/31/20 05/31/20 Range/Units 14:36 14:36 WBC (4.5-11.0) K/uL RBC (3.30-5.50) M/uL Hgb (12.0-15.0) g/dL Hct (36.0-48.0) % MCV (80-98) fL MCH (27-31) pg MCHC (32-36) % Plt Count (150-400) K/uL Neut % (Auto) (36-66) % Lymph % (Auto) (24-44) % [place] % (Auto) (2-6) % Eos % (Auto) (2-4) % Baso % (Auto) (0-1) % Sodium (140-148) mmol/L Potassium (3.6-5.2) mmol/L Chloride (100-108) mmol/L Carbon Dioxide (21-32) mmol/L Anion Gap (5.0-14.0) mmol/L BUN (7-18) mg/dL Creatinine (0.6-1.0) mg/dL Est Cr Clr Drug Dosing mL/min Estimated GFR (MDRD) (>60) Glucose (74-106) mg/dL Calcium (8.5-10.1) mg/dL Total Bilirubin (0.2-1.0) mg/dL AST (15-37) U/L ALT (12-78) U/L Alkaline Phosphatase (46-116) U/L Total Protein (6.4-8.2) g/dL Albumin (3.4-5.0) g/dL Globulin (2.3-3.5) g/dL Albumin/Globulin Ratio (1.2-2.2) Urine Color Yellow (YELLOW) Urine Appearance Slightly cloudy A (CLEAR) Urine pH 7.0 (5.0-8.0) Ur Specific [place] 1.025 (1.008-1.030) Urine Protein Negative (NEGATIVE) mg/dL Urine Glucose (UA) Negative (NEGATIVE) mg/dL Urine Ketones Negative (NEGATIVE) mg/dL Urine Occult Blood Trace-intact H (NEGATIVE) Urine Nitrite Negative (NEGATIVE) Urine Bilirubin Negative (NEGATIVE) Urine Urobilinogen 1.0 (0.2-1.0) EU/dL Ur Leukocyte Esterase Negative (NEGATIVE) Urine RBC 5-10 H (0-5) Urine WBC 0-5 (0-5) Ur Epithelial Cells Few Amorphous Sediment Not seen Urine Bacteria Few Urine Mucus Moderate Urine Opiates Screen Negative (NEGATIVE) Ur Oxycodone Screen Negative (NEGATIVE) Urine Methadone Screen Negative (NEGATIVE) Ur Propoxyphene Screen Negative (NEGATIVE) Ur Barbiturates Screen Negative (NEGATIVE) Ur Tricyclics Screen Negative (NEGATIVE) Ur Phencyclidine Scrn Negative (NEGATIVE) Ur Amphetamine Screen Negative (NEGATIVE) U Methamphetamines Scrn Negative (NEGATIVE) Urine MDMA Screen Negative (NEGATIVE) U Benzodiazepines Scrn Presumptive positive H (NEGATIVE) U Cocaine Metab Screen Negative (NEGATIVE) U Marijuana (THC) Screen Negative (NEGATIVE) Ethyl Alcohol mg/dL Result Diagrams: 05/31/20 13:30 05/31/20 13:30 Sepsis Event Note - Evaluation Sepsis Screening Result: No Definite Risk - Focused Exam Vital Signs: Vital Signs Temp Pulse Resp BP Pulse Ox 05/31/20 13:11 98.3 F 82 20 108/57 L 100 *Q Meaningful Use (ADM) - VTE Risk Assess *Q Each Risk Factor Represents 1 Point: Age 41 - 59 years Total Score 1 Point Risk Factors: 1 Each Risk Factor Represents 2 Points: None Total Score 2 Point Risk Factors: 0 Each Risk Factor Represents 3 Points: None Total Score 3 Point Risk Factors: 0 Each Risk Factor Represents 5 Points: None Total Score 5 Point Risk Factors: 0 Venous Thromboembolism Risk Factor Score *Q: 1 Problem List Initiated/Reviewed/Updated: Yes Orders Last 24hrs: Active Orders 24 hr Category Date Time Status Patient Status Manage Transfer [TRANSFER] Routine ADT 05/31/20 14:55 Active [place] Catheter Insertion [Insert Urinary Catheter] [OM. Care 05/31/20 13:30 Ordered PC] Q24H Urinary Catheter Assessment [RC] ASDIRECTED Care 05/31/20 13:25 Active Sodium Chloride 0.9% [Normal Saline] 1,000 ml Med 05/31/20 13:30 Active IV ASDIRECTED Sodium Chloride 0.9% [Normal Saline] 1,000 ml Med 05/31/20 13:30 Active IV ASDIRECTED Resuscitation Status Routine Resus Stat 05/31/20 14:56 Ordered Medication Orders Sodium Chloride (Normal Saline) 1,000 mls @ 999 mls/hr IV ASDIRECTED [facility] Last Admin: 05/31/20 13:23 Dose: 999 mls/hr Documented by: PATRICIA Sodium Chloride (Normal Saline) 1,000 mls @ 999 mls/hr IV ASDIRECTED [facility] Assessment/Plan Comment:: ASSESSMENT AND PLAN DRUG OVERDOSE-apparently took overdose of lorazepam last night at approximately 7 PM. Still lethargic and weak, but protecting airway adequately. -Admit to ICU -Hold other sedating meds and lorazepam SUICIDE ATTEMPT-history of underlying depression and increased social stress -Transfer to inpatient psych when medically stable -72-hour hold if she attempts to leave prior to transfer -Suicide precautions MAINTENANCE ISSUES -DVT prophylaxis; sequential compression device -GI prophylaxis; not indicated -Clinton catheter; not indicated -Nutrition; regular diet -Nicotine dependence; not required CODE STATUS-FULL CODE ADMISSION STATUS-patient will be admitted to inpatient status, expect at least a 2 night hospital stay for evaluation and management of problems as outlined abo ve. At the time of this admission I do not reasonably expected evaluation and management of this problem will require more than a 96 hour hospital stay. DISPOSITION-anticipate discharge to home after the hospital stay. PRIMARY CARE PROVIDER- - Mortality Measure Prognosis:: Good
[2020-05-31] MEDS ORDERED: Ondansetron 4 MG/2 ML SDV IV PRN (16:11)
[2020-05-31] MEDS ORDERED: Sodium Chloride 0.9% 10 ML Syringe FLUSH PRN (16:11)
[2020-05-31] MEDS ORDERED: Polyethylene Glycol 3350 Powder 17 GM Packet PO PRN (16:11)
[2020-05-31] MEDS: Sodium Chloride 0.9% 1,000 ML IV SCH ×2 (16:14→22:39)
[2020-06-01] MEDS ORDERED: Sodium Chloride 0.9% 10 ML SDV IV ONE (00:25)
[2020-06-01] MEDS ORDERED: Sodium Chloride 0.9% 1,000 ML IV ONE (00:30)
[2020-06-01] MEDS ORDERED: Sodium Chloride 0.9% 1,000 ML IV SCH ×2 (00:30→02:15)
[2020-06-01] MEDS: Sodium Chloride 0.9% 1,000 ML IV SCH ×2 (02:50→08:11)
--- NOTE | 2020-06-01 13:12 | PCM.DCSUM1 ---
Discharge Summary - Hospital Course Brief History: Ms. Pastor is a 44 year-old female admitted on 05/31 following an intentional medication overdose. - Discharge Data Discharge Date: 06/01/20 Discharge Disposition: DC/Tfer to Psych Hosp/Unit [facility] Condition: Good - Referral to Home Health Primary Care Physician: PCP None - Discharge Diagnosis/Problem(s) (1) Suicide attempt by drug ingestion SNOMED Code(s): 00095325, [id number] ICD Code: T50.902A - POISONING BY UNSP DRUG/MEDS/BIOL SUBST, SELF-HARM, INIT Status: Acute Priority: High Current Visit: Yes Qualifiers: Encounter type: initial encounter Qualified Code(s): T50.902A - Poisoning by unspecified drugs, medicaments and biological substances, intentional self- harm, initial encounter - Patient Summary/Data Hospital Course: 44 year-old female admitted on 05/31 after intentional ingestion of (18) 1 mg tabs of lorazepam the night prior (0) in an attempt to harm herself. She was initially lethargic and closely monitored until the morning of 06/01. She had no evidence of other ingestion and no significant events were noted during her hospitalization. She admitted to intent for self-harm after she became more arousable. The patient was deemed unsafe to return directly home and transfer for further inpatient psychiatric care was recommended. The patient was accep siobhan for further psychiatric care in the [place] area and was discharged in stable condition. > 30 minutes was spent in counseling patient and coordinating transfer prior to discharge. - Patient Instructions Diet: Regular Diet as Tolerated Activity: As Tolerated Notify Provider of: Fever, Nausea and/or Vomiting - Discharge Plan *PRESCRIPTION DRUG MONITORING PROGRAM REVIEWED*: Not Applicable *COPY OF PRESCRIPTION DRUG MONITORING REPORT IN PATIENT JB: Not Applicable Home Medications: Home Meds FLUoxetine [PROzac] 40 mg PO DAILY 10/06/14 [History] ARIPiprazole [Abilify] 5 mg PO DAILY 05/15/20 [History] LORazepam [Ativan] 0.5 mg PO Q6H PRN 05/15/20 [History] Lisdexamfetamine [Vyvanse] 30 mg PO DAILY 05/31/20 [History] hydrOXYzine pamoate [Hydroxyzine Pamoate] 75 mg PO TID 05/31/20 [History] traZODone HCl [Trazodone HCl] 100 mg PO BEDTIME 05/31/20 [History] Oxygen Therapy Mode: Room Air Forms: ED Department Discharge Referrals: PCP,None [Primary Care Provider] - - Discharge Summary/Plan Comment DC Time >30 min.: Yes (32 minutes) - Patient Data Vitals - Most Recent: Last Vital Signs Temp 98.4 F 06/01/20 13:00 Pulse 87 06/01/20 13:00 Resp 16 06/01/20 13:00 BP 104/62 06/01/20 13:00 Pulse Ox 94 L 06/01/20 13:00 Weight - Most Recent: 120 lb I&O - Last 24 hours: Intake & Output 05/31/20 06/01/20 06/01/20 22:59 06:59 14:59 Intake Total 3427 Output Total 600 800 Balance 2827 -800 Lab Results - Last 24 hrs: Laboratory Results - last 24 hr 05/31/20 05/31/20 05/31/20 Range/Units 13:19 13:30 13:30 WBC 8.5 (4.5-11.0) K/uL RBC 4.13 (3.30-5.50) M/uL Hgb 12.3 (12.0-15.0) g/dL Hct 38.1 (36.0-48.0) % MCV 92 (80-98) fL MCH 30 (27-31) pg MCHC 32 (32-36) % Plt Count 326 (150-400) K/uL Neut % (Auto) 57 (36-66) % Lymph % (Auto) 32 (24-44) % [place] % (Auto) 10 H (2-6) % Eos % (Auto) 1 L (2-4) % Baso % (Auto) 0 (0-1) % Sodium 142 (140-148) mmol/L Potassium 4.1 (3.6-5.2) mmol/L Chloride 107 (100-108) mmol/L Carbon Dioxide 25 (21-32) mmol/L Anion Gap 10.0 (5.0-14.0) mmol/L BUN 18 (7-18) mg/dL Creatinine 0.9 (0.6-1.0) mg/dL Est Cr Clr Drug Dosing 67.11 mL/min Estimated GFR (MDRD) > 60 (>60) Glucose 87 (74-106) mg/dL Calcium 8.8 (8.5-10.1) mg/dL Total Bilirubin 0.5 (0.2-1.0) mg/dL AST 12 L (15-37) U/L ALT 17 (12-78) U/L Alkaline Phosphatase 53 (46-116) U/L Total Protein 6.5 (6.4-8.2) g/dL Albumin 3.7 (3.4-5.0) g/dL Globulin 2.8 (2.3-3.5) g/dL Albumin/Globulin Ratio 1.3 (1.2-2.2) Urine Color (YELLOW) Urine Appearance (CLEAR) Urine pH (5.0-8.0) Ur Specific Barnard (1.008-1.030) Urine Protein (NEGATIVE) mg/dL Urine Glucose (UA) (NEGATIVE) mg/dL Urine Ketones (NEGATIVE) mg/dL Urine Occult Blood (NEGATIVE) Urine Nitrite (NEGATIVE) Urine Bilirubin (NEGATIVE) Urine Urobilinogen (0.2-1.0) EU/dL Ur Leukocyte Esterase (NEGATIVE) Urine RBC (0-5) Urine WBC (0-5) Ur Epithelial Cells Amorphous Sediment Urine Bacteria Urine Mucus Salicylates (2.0-20.0) mg/dL Urine Opiates Screen (NEGATIVE) Ur Oxycodone Screen (NEGATIVE) Urine Methadone Screen (NEGATIVE) Ur Propoxyphene Screen (NEGATIVE) Acetaminophen (10.0-30.0) ug/mL Ur Barbiturates Screen (NEGATIVE) Ur Tricyclics Screen (NEGATIVE) Ur Phencyclidine Scrn (NEGATIVE) Ur Amphetamine Screen (NEGATIVE) U Methamphetamines Scrn (NEGATIVE) Urine MDMA Screen (NEGATIVE) U Benzodiazepines Scrn (NEGATIVE) U Cocaine Metab Screen (NEGATIVE) U Marijuana (THC) Screen (NEGATIVE) Ethyl Alcohol < 3 mg/dL SARS CoV-2 RNA Rapid JAX 05/31/20 05/31/20 05/31/20 Range/Units 14:36 14:36 15:54 WBC (4.5-11.0) K/uL RBC (3.30-5.50) M/uL Hgb (12.0-15.0) g/dL Hct (36.0-48.0) % MCV (80-98) fL MCH (27-31) pg MCHC (32-36) % Plt Count (150-400) K/uL Neut % (Auto) (36-66) % Lymph % (Auto) (24-44) % [place] % (Auto) (2-6) % Eos % (Auto) (2-4) % Baso % (Auto) (0-1) % Sodium (140-148) mmol/L Potassium (3.6-5.2) mmol/L Chloride (100-108) mmol/L Carbon Dioxide (21-32) mmol/L Anion Gap (5.0-14.0) mmol/L BUN (7-18) mg/dL Creatinine (0.6-1.0) mg/dL Est Cr Clr Drug Dosing mL/min Estimated GFR (MDRD) (>60) Glucose (74-106) mg/dL Calcium (8.5-10.1) mg/dL Total Bilirubin (0.2-1.0) mg/dL AST (15-37) U/L ALT (12-78) U/L Alkaline Phosphatase (46-116) U/L Total Protein (6.4-8.2) g/dL Albumin (3.4-5.0) g/dL Globulin (2.3-3.5) g/dL Albumin/Globulin Ratio (1.2-2.2) Urine Color Yellow (YELLOW) Urine Appearance Slightly cloudy A (CLEAR) Urine pH 7.0 (5.0-8.0) Ur Specific Barnard 1.025 (1.008-1.030) Urine Protein Negative (NEGATIVE) mg/dL Urine Glucose (UA) Negative (NEGATIVE) mg/dL Urine Ketones Negative (NEGATIVE) mg/dL Urine Occult Blood Trace-intact H (NEGATIVE) Urine Nitrite Negative (NEGATIVE) Urine Bilirubin Negative (NEGATIVE) Urine Urobilinogen 1.0 (0.2-1.0) EU/dL Ur Leukocyte Esterase Negative (NEGATIVE) Urine RBC 5-10 H (0-5) Urine WBC 0-5 (0-5) Ur Epithelial Cells Few Amorphous Sediment Not seen Urine Bacteria Few Urine Mucus Moderate Salicylates 0.5 L (2.0-20.0) mg/dL Urine Opiates Screen Negative (NEGATIVE) Ur Oxycodone Screen Negative (NEGATIVE) Urine Methadone Screen Negative (NEGATIVE) Ur Propoxyphene Screen Negative (NEGATIVE) Acetaminophen (10.0-30.0) ug/mL Ur Barbiturates Screen Negative (NEGATIVE) Ur Tricyclics Screen Negative (NEGATIVE) Ur Phencyclidine Scrn Negative (NEGATIVE) Ur Amphetamine Screen Negative (NEGATIVE) U Methamphetamines Scrn Negative (NEGATIVE) Urine MDMA Screen Negative (NEGATIVE) U Benzodiazepines Scrn Presumptive positive H (NEGATIVE) U Cocaine Metab Screen Negative (NEGATIVE) U Marijuana (THC) Screen Negative (NEGATIVE) Ethyl Alcohol mg/dL SARS CoV-2 RNA Rapid JAX 05/31/20 05/31/20 06/01/20 Range/Units 16:11 19:00 12:30 WBC (4.5-11.0) K/uL RBC (3.30-5.50) M/uL Hgb (12.0-15.0) g/dL Hct (36.0-48.0) % MCV (80-98) fL MCH (27-31) pg MCHC (32-36) % Plt Count (150-400) K/uL Neut % (Auto) (36-66) % Lymph % (Auto) (24-44) % [place] % (Auto) (2-6) % Eos % (Auto) (2-4) % Baso % (Auto) (0-1) % Sodium (140-148) mmol/L Potassium (3.6-5.2) mmol/L Chloride (100-108) mmol/L Carbon Dioxide (21-32) mmol/L Anion Gap (5.0-14.0) mmol/L BUN (7-18) mg/dL Creatinine (0.6-1.0) mg/dL Est Cr Clr Drug Dosing mL/min Estimated GFR (MDRD) (>60) Glucose (74-106) mg/dL Calcium (8.5-10.1) mg/dL Total Bilirubin (0.2-1.0) mg/dL AST (15-37) U/L ALT (12-78) U/L Alkaline Phosphatase (46-116) U/L Total Protein (6.4-8.2) g/dL Albumin (3.4-5.0) g/dL Globulin (2.3-3.5) g/dL Albumin/Globulin Ratio (1.2-2.2) Urine Color (YELLOW) Urine Appearance (CLEAR) Urine pH (5.0-8.0) Ur Specific [place] (1.008-1.030) Urine Protein (NEGATIVE) mg/dL Urine Glucose (UA) (NEGATIVE) mg/dL Urine Ketones (NEGATIVE) mg/dL Urine Occult Blood (NEGATIVE) Urine Nitrite (NEGATIVE) Urine Bilirubin (NEGATIVE) Urine Urobilinogen (0.2-1.0) EU/dL Ur Leukocyte Esterase (NEGATIVE) Urine RBC (0-5) Urine WBC (0-5) Ur Epithelial Cells Amorphous Sediment Urine Bacteria Urine Mucus Salicylates (2.0-20.0) mg/dL Urine Opiates Screen (NEGATIVE) Ur Oxycodone Screen (NEGATIVE) Urine Methadone Screen (NEGATIVE) Ur Propoxyphene Screen (NEGATIVE) Acetaminophen 0.0 L 0.0 L (10.0-30.0) ug/mL Ur Barbiturates Screen (NEGATIVE) Ur Tricyclics Screen (NEGATIVE) Ur Phencyclidine Scrn (NEGATIVE) Ur Amphetamine Screen (NEGATIVE) U Methamphetamines Scrn (NEGATIVE) Urine MDMA Screen (NEGATIVE) U Benzodiazepines Scrn (NEGATIVE) U Cocaine Metab Screen (NEGATIVE) U Marijuana (THC) Screen (NEGATIVE) Ethyl Alcohol mg/dL SARS CoV-2 RNA Rapid JAX Negative Med Orders - Current: Current Medications Sodium Chloride (Normal Saline) 1,000 mls @ 125 mls/hr IV [facility]ED [facility] Last Admin: 06/01/20 08:11 Dose: 125 mls/hr Documented by: Ondansetron HCl (Zofran) 4 mg IV Q4H PRN PRN Reason: Nausea/Vomiting Polyethylene Glycol (Miralax) 17 gm PO DAILY PRN PRN Reason: Constipation Sodium Chloride (Saline Flush) 10 ml FLUSH ASDIRECTED PRN PRN Reason: Keep Vein Open Discontinued Medications Sodium Chloride (Normal Saline) 1,000 mls @ 999 mls/hr IV ASDIRECTED [facility] Last Admin: 05/31/20 13:23 Dose: 999 mls/hr Documented by: Sodium Chloride (Normal Saline) 1,000 mls @ 999 mls/hr IV ASDIRECTED [facility] Sodium Chloride (Normal Saline) 1,000 mls @ 999 mls/hr IV ONETIME ONE Stop: 06/01/20 01:30 Last Admin: 06/01/20 00:29 Dose: 999 mls/hr Documented by: Sodium Chloride (Normal Saline) 1,000 mls @ 999 mls/hr IV ASDIRECTED [facility] Sodium Chloride (Normal Saline) 1,000 mls @ 999 mls/hr IV ASDIRECTED [facility] Stop: 06/01/20 03:16 Last Admin: 06/01/20 02:16 Dose: 999 mls/hr Documented by:
[2020-06-01 15:59] VITALS: BP 111/60; PULSE 89
== END 2020-06-01 16:46 | DRG 918 ==
LOC: JP.ED 13:01 → JP.ICU 14:55
PROVIDERS: ADMIT Hospitalist; ATTEND Hospitalist
DX: T42.4X2A Poisoning by benzodiazepines, intentional self-harm, initial encounter (principal); Z79.899 Other long term (current) drug therapy; F32.9 Major depressive disorder, single episode, unspecified; Z98.51 Tubal ligation status; F17.210 Nicotine dependence, cigarettes, uncomplicated; Z20.822 Contact with and (suspected) exposure to COVID-19
CPT/HCPCS: 36415; 80053; 80143; 80179; 80305-QW; 80307; 81001; 85025; 94762; 99284; 99285; J7030; U0002